=== PATIENT | male | born 1945 | race Caucasian/White ===

== ENCOUNTER → 2017-01-11 | Outpatient (CLI) | payer MEDICARE, OTHER | END | disposition home or self-care (01) | LOC: PCVCIMAG 10:57 | PROVIDERS: ATTEND Internal Medicine Cardiovascular Disease | DX: I65.21 Occlusion and stenosis of right carotid artery (principal); I25.10 Atherosclerotic heart disease of native coronary artery without angina pectoris; I12.9 Hypertensive chronic kidney disease with stage 1 through stage 4 chronic kidney disease, or unspecified chronic kidney disease; E11.22 Type 2 diabetes mellitus with diabetic chronic kidney disease; N18.9 Chronic kidney disease, unspecified; I44.0 Atrioventricular block, first degree; J44.9 Chronic obstructive pulmonary disease, unspecified; E78.5 Hyperlipidemia, unspecified; Z72.0 Tobacco use; Z95.1 Presence of aortocoronary bypass graft; Z79.82 Long term (current) use of aspirin; Z79.899 Other long term (current) drug therapy; Z88.8 Allergy status to other drugs, medicaments and biological substances | CPT/HCPCS: 80061; 93880; G0463 ==

== ENCOUNTER → 2017-02-19 | Outpatient (CLI) | payer MEDICARE, OTHER ==
--- NOTE | 2017-02-19 15:12 | PCVCIMAG ---
APPROVED REPORT Study performed: 02/19/2017 08:47:40 EXAM: Comprehensive 2D, Doppler, and color-flow Echocardiogram Patient Location: Echo lab Status: routine BSA: 2.29 HR: 49 bpmBP: 162/68 mmHg Rhythm: Bradycardia Other Information Study Quality: Adequate Indications Abnormal ECG COPD Diabetes Dyspnea CAD Hypertension/HDD S/P CABG, + TOBACCO USE 2D Dimensions LVEF(%): 64.69 (>50%) IVSd: 9.72 (7-11mm)LVOT Diam: 24.46 (18-24mm) LVDd: 49.09 mm PWd: 9.98 (7-11mm)Ascending Ao: 37.11 (22-36mm) LVDs: 31.69 (25-40mm) Left Atrium: 47.38 (27-40mm) Aortic Root: 33.30 mm LV Single Plane 4CH: 57.02 % LV Single Plane 2CH: 61.68 %Reyes's LVEF: 59.35 % Biplane EF: 60.0 % Volumes Left Atrial Volume (Systole) Single Plane 4CH: 84.06 mLSingle Plane 2CH: 99.46 mL Biplane LA Volume: 98.00 mLLA ESV Index: 43.00 mL/m2 Aortic Valve AoV Peak Clinton.: 1.27 m/s AO Peak Gr.: 7.05 mmHgLVOT Max P.69 mmHg LVOT Max V: 1.19 m/s ARACELI Vmax: 4.39 cm2 AI Vmax: 4.29 m/s AI Estill: 1.93 m/s2 AI PHT: 644.08 ms Mitral Valve E/A Ratio: 2.6 MV Decel. Time: 225.75 ms MV E Max Clinton.: 0.83 m/s MV A Clinton.: 0.32 m/s MV PHT: 65.47 ms IVRT: 58.82 ms TDI E/Lateral E': 8.30E/Medial E': 10.38 Medial E' Clinton.: 0.08 m/s Lateral E' Clinton.: 0.10 m/s Pulmonary Valve PV Peak Clinton.: 1.21 m/sPV Peak Gr.: 5.87 mmHg Pulmonary Vein P Vein S: 0.56 m/sP Vein A: 0.25 m/s P Vein D: 0.91 m/sP Vein A Dur.: 79.6 msec P Vein S/D Ratio: 0.62 Tricuspid Valve TR Peak Clinton.: 2.56 m/s TR Peak Gr.: 26.22 mmHg TV Vmax: 0.75 m/sPA Pressure: 33.00 mmHg Left Ventricle The left ventricle is normal size. There is normal LV segmental wall motion. There is normal left ventricular wall thickness. Left ventricular systolic function is normal. The left ventricular ejection fraction is within the normal range. LVEF is 60%. The left ventricular diastolic function is normal. Right Ventricle The right ventricle is normal size. The right ventricular systolic function is normal. Atria Left atrium is moderately dilated. The right atrium size is normal. Aortic Valve Aortic valve is trileaflet. Aortic valve leaflets are mildly thickened. Mild aortic regurgitation. There is no aortic valvular stenosis. Mitral Valve The mitral valve is normal in structure. Moderate mitral regurgitation. No evidence of mitral valve stenosis. Tricuspid Valve The tricuspid valve is normal in structure. Mild tricuspid regurgitation with a PA preassure of 33mmHg. Pulmonic Valve The pulmonary valve is normal in structure. Mild pulmonic regurgitation. Great Vessels The aortic root is normal in size. The ascending aorta is normal in size. IVC is normal in size and collapses with >50% inspiration Pericardium There is no pericardial effusion. There is no pleural effusion. <Conclusion> The left ventricle is normal size. Left ventricular systolic function is normal. The left ventricular ejection fraction is within the normal range. LVEF is 60%. The right ventricle is normal size. Left atrium is moderately dilated. Aortic valve is trileaflet. Aortic valve leaflets are mildly thickened. There is no aortic valvular stenosis. Moderate mitral regurgitation. Mild tricuspid regurgitation with a PA preassure of 33mmHg. There is no pericardial effusion.
== END | disposition home or self-care (01) ==
LOC: PCVCIMAG 09:20
PROVIDERS: ATTEND Internal Medicine Cardiovascular Disease
DX: I08.3 Combined rheumatic disorders of mitral, aortic and tricuspid valves (principal); I25.10 Atherosclerotic heart disease of native coronary artery without angina pectoris; R94.31 Abnormal electrocardiogram [ECG] [EKG]; J44.9 Chronic obstructive pulmonary disease, unspecified; I12.9 Hypertensive chronic kidney disease with stage 1 through stage 4 chronic kidney disease, or unspecified chronic kidney disease; N18.9 Chronic kidney disease, unspecified; E11.22 Type 2 diabetes mellitus with diabetic chronic kidney disease; Z79.82 Long term (current) use of aspirin; Z95.1 Presence of aortocoronary bypass graft; Z72.0 Tobacco use; Z79.4 Long term (current) use of insulin
CPT/HCPCS: 93306

== ENCOUNTER → 2017-03-06 | Outpatient (CLI) | payer MEDICARE, OTHER ==
[~2017-03-06] MED LIST: REGADENOSON 0.4 MG/5 ML DISP.SYRIN. IV ONE
--- NOTE | 2017-03-06 17:17 | PCVCIMAG ---
APPROVED REPORT Exam: Nuclear Stress Test Indication: Chest Pain, CAD Patient Location: Out-Patient Stress Nurse: Drea Ashford RN, ASHLEY Dawn Tech:Yoel Scales NMTCB Ht: 6 ft 0 in Wt: 238 lbs BSA: 2.29 m2 HR: 46 bpm BP: 184/81 mmHg BMI: 32.2 Rhythm: First degree AV Block, Junctional Medical History Medical History: Age, HTN, COPD, Dm Smoker Medications: ASA, Bystolic, Zetia, Losartan, Allergies: Zocor Previous Cardiac Procedures: CABG 2005 Pretest Chest Pain Characteristics: No chest pain Exercise History: Physically active Meds Held (24 hrs): Bystolic NM EXAM: Myocardial Perfusion REST/STRESS Imaging Protocol: Rest Tc-99m/Stress Tc-99m 1 day Resting Data Rest SPECT myocardial perfusion imaging was performed in supine position 45 minutes following the intravenous injection of 11.3 mCi of Tc-99m Sestamibi. Time of rest injection: 1215 Date: 03/06/2017 Pharmacologic Stress Pharmacologic stress test was performed by injecting Regadenoson 0.4 mg IV push followed by the intravenous injection of 34.5 mCi of Tc-99m Sestamibi. Time of stress injection: 1345 Date: 03/06/2017 The images were gated to evaluate regional wall motion and calculate left ventricular ejection fraction. Study Quality Study: Fair Study Data Post stress, the left ventricular ejection was 65%.. SSS: 1 SRS: 3 SDS: 1 TID = 1.20. Perfusion There is a small area of mildly reduced uptake in the mid segment of the inferoseptal wall which is seen on the stress images as well as the resting images. No evidence of stress induced ischemia. Wall Motion Normal left ventricular function with no regional wall motion abnormalities with mild chamber dilatation. Nuclear Conclusion No evidence of stress induced ischemia. Normal left ventricular function with no regional wall motion abnormalities with mild chamber dilatation. Post stress, the left ventricular ejection was 65%.. No change since prior study dated November 2015. Interpreted by: Syd Cormier MD Electronically Approved: 03/06/2017 17:07:51 Stress Test Details Stress Test: Pharmacologic stress testing performed using 0.4 mg of regadenoson per 5 mL given IV over 10 seconds. Reason for pharmacologic stress test: physical limitation. HR Resting HR: 46 bpmMax Heart Rate (APMHR): 150 bpm Max HR Achieved: 62 bpmTarget HR (85% APMHR): 127 bpm % of APMHR: 41 Recovery HR: 60 bpm BP Resting BP: 184/81 mmHg Max BP: 149/76 mmHg ECG Resting ECG: Sinus Bradycardia, 1st degree AV block Stress ECG: Sinus Rhythm, 1st degree AV block Recovery ECG: Sinus Rhythm, 1st degree AV block Clinical Reason for Termination: Completed protocol Stress Symptoms: None Symptoms resolved with caffeine. Stress ECG Conclusion ECG: Non-ischemic <Conclusion> ECG: Non-ischemic
== END | disposition home or self-care (01) ==
LOC: PCVCIMAG 12:00
PROVIDERS: ATTEND Internal Medicine Cardiovascular Disease
DX: I44.0 Atrioventricular block, first degree (principal); I25.10 Atherosclerotic heart disease of native coronary artery without angina pectoris; K52.9 Noninfective gastroenteritis and colitis, unspecified; I10 Essential (primary) hypertension; J44.9 Chronic obstructive pulmonary disease, unspecified; E11.9 Type 2 diabetes mellitus without complications; Z79.4 Long term (current) use of insulin; Z87.891 Personal history of nicotine dependence; Z95.1 Presence of aortocoronary bypass graft
CPT/HCPCS: 78452; 93017; A9500; J2785